=== PATIENT | female | born 1995 | race African-American/Black ===

== ENCOUNTER 2018-07-02 18:27 | Emergency (ER) | payer MEDICAID ==
[~2018-07-02] VITALS: Ht 165.1 cm; Wt 57.0 kg
[2018-07-02] MEDS ORDERED: ONDANSETRON HCL 4MG/2ML INJ IV STA (19:16)
[2018-07-02] MEDS ORDERED: SODIUM CHLORIDE 0.9% 1,000 ML IV ONE (19:16)
[2018-07-02] MEDS ORDERED: MORPHINE SULFATE 4 MG/ML CPJ (NOT FOR IM USE) IV STA (19:16)
[2018-07-02 19:23] LABS: BASOPHILS % 0.6 % (0.0-2.0); EOSINOPHILS % 0.4 % (0.0-5.0); HEMATOCRIT. 39.2 % (36.0-48.0); HEMOGLOBIN. 13.1 g/dL (12.0-16.0); LYMPHOCYTES % 38.1 % (20.0-50.0); MEAN CORPUSCULAR HEMOGLOBIN 29.4 pg (28.0-32.0); MEAN CORPUSCULAR VOLUME 88.4 fL (81.0-99.0); MEAN PLATELET VOLUME 9.8 fl (7.4-10.4); MONOCYTES % 8.7 % (2.0-8.0); NEUTROPHILS % 52.2 % (40.0-76.0); PLATELET 264 x1000/uL (130-400); RED BLOOD CELL COUNT 4.44 mill/uL (4.2-5.4); RED CELL DISTRIBUTION WIDTH 13.3 % (11.6-14.6)
[2018-07-02 19:24] LABS: CHLORIDE 111 mEq/L (98-107)
[2018-07-02 19:25] LABS: HCG SCREEN NEGATIVE
[2018-07-02] MEDS ORDERED: MIDAZOLAM HCL 2 MG/2 ML VIAL IV ONE (20:30)
[2018-07-02] MEDS ORDERED: FENTANYL CITRATE/PF 50MCG/ML 2ML VIAL IV ONE (20:30)
[2018-07-02] MEDS ORDERED: KETAMINE HCL 50 MG/ML 10ML IV ONE (21:30)
[2018-07-02 23:00] VITALS: BP 128/92
== END 2018-07-02 23:05 | disposition home or self-care (01) ==
LOC: ER 18:27
DX: S43.084A Other dislocation of right shoulder joint, initial encounter (principal); X58.XXXA Exposure to other specified factors, initial encounter; Y93.89 Activity, other specified; Y92.89 Other specified places as the place of occurrence of the external cause; Y99.8 Other external cause status; Z88.4 Allergy status to anesthetic agent
CPT/HCPCS: 23650; 36415; 73030; 80053; 84703; 85025; 96374; 96375; 99285; J2250; J2270; J2405; J3010; J3490; J7030; L3670

== ENCOUNTER 2018-08-27 09:06 | Emergency (ER) | payer MEDICAID ==
[~2018-08-27] VITALS: Ht 167.6 cm; Wt 64.0 kg
[2018-08-27] MEDS ORDERED: MORPHINE SULFATE 4 MG/ML CPJ (NOT FOR IM USE) IV ONE ×3 (09:30→11:15)
[2018-08-27] MEDS ORDERED: PROPOFOL 200MG/20ML VIAL IV ONE (10:45)
[2018-08-27] MEDS ORDERED: ONDANSETRON HCL 4MG/2ML INJ IV ONE (10:45)
[2018-08-27] MEDS ORDERED: FENTANYL CITRATE/PF 50MCG/ML 2ML VIAL IV ONE (11:15)
[2018-08-27 11:41] VITALS: BP 107/66
== END 2018-08-27 13:39 | disposition home or self-care (01) ==
LOC: ER 09:06
DX: M24.411 Recurrent dislocation, right shoulder (principal); Z88.4 Allergy status to anesthetic agent
CPT/HCPCS: 23650; 73030; 96374; 96375; 96376; 99152; 99285; J2270; J2405; J2704; J3010; Z7610; L3670